=== PATIENT | female | born 1990 | race Caucasian/White ===

== ENCOUNTER 2019-01-04 13:34 | Observation (INO) | payer BC ==
[~2019-01-04] VITALS: Ht 165.1 cm; Wt 64.4 kg
== END 2019-01-04 14:05 | disposition home or self-care (01) ==
LOC: SPU 13:34
PROVIDERS: ADMIT Obstetrics & Gynecology; ATTEND Obstetrics & Gynecology
DX: O26.852 Spotting complicating pregnancy, second trimester (principal); O26.893 Other specified pregnancy related conditions, third trimester; R10.31 Right lower quadrant pain; Z3A.21 21 weeks gestation of pregnancy
CPT/HCPCS: 81002-TC; G0378

== ENCOUNTER 2019-04-22 20:50 | Observation (INO) | payer BC | END 2019-04-22 21:45 | disposition home or self-care (01) | LOC: SPU 20:50 | PROVIDERS: ADMIT Specialist; ATTEND Specialist | DX: O62.9 Abnormality of forces of labor, unspecified (principal); Z3A.36 36 weeks gestation of pregnancy | CPT/HCPCS: 81002-TC; G0378 ==